=== PATIENT | male | born 2005 | race Asian ===

== ENCOUNTER 2025-05-18 07:31 | Emergency (ER) | payer OTHER ==
[~2025-05-18] VITALS: Ht 175.3 cm; Wt 80.9 kg
[2025-05-18 07:35] VITALS: TEMP 98.6
[2025-05-18] MEDS ORDERED: IBUP-1506 PO (07:50)
[2025-05-18 08:05] LABS: GLUCOMETER DEV NAME(LOC) ER.7; GLUCOSE,POINT OF CARE 369 MG/DL (70-110)
[2025-05-18 08:12] LABS: PLATELET COUNT (AUTO) 246 K/uL (150-450); RED BLOOD CELL COUNT(AUTO) 6.10 MIL/uL (4.50-5.90); RED CELL DISTRIBUTION WIDTH 13.3 % (11.5-14.5); WHITE BLOOD COUNT (AUTO) 6.6 K/uL (4.5-11.0)
[2025-05-18] MEDS: KETOROLAC TROMETHAMINE 30 MG/ML VIAL IVP ONE (08:28)
[2025-05-18] MEDS: SODIUM CHLORIDE 0.9% 1,000 ML IV ONE (08:28)
[2025-05-18] MEDS: ACETAMINOPHEN 500 MG TABLET PO ONE (08:28)
[2025-05-18] MEDS: LIDOCAINE 5% TRANSDERMAL PATCH TD ONE (08:29)
[2025-05-18 08:49] LABS: CALCIUM, TOTAL 8.7 mg/dL (8.8-10.5); CREATININE 0.91 mg/dL (0.60-1.30); GLOMERULAR FILTR. RATE CALC > 60 mL/min (>60); GLUCOSE,RANDOM 372 mg/dL (70-110); SODIUM SERUM 134 mmol/L (136-145); UREA NITROGEN, BLOOD 8 mg/dL (7-18)
[2025-05-18] MEDS: INSULIN REGULAR, HUMAN 100 UNITS/ML IVP ONE (08:57)
[2025-05-18 10:06] LABS: GLUCOMETER DEV NAME(LOC) ERT.7; GLUCOSE,POINT OF CARE 218 MG/DL (70-110)
[2025-05-18 10:24] VITALS: BP 116/69; PULSE 56; RESP 18; O2SAT 98
[2025-05-18] MEDS ORDERED: ACET-3385 PO (11:38)
[2025-05-18] MEDS ORDERED: IBUP-1492 PO (11:38)
== END 2025-05-18 11:57 | disposition home or self-care (01) ==
LOC: EMS 07:31
DX: S32.019A Unspecified fracture of first lumbar vertebra, initial encounter for closed fracture (principal); E11.65 Type 2 diabetes mellitus with hyperglycemia; F12.90 Cannabis use, unspecified, uncomplicated; Z79.899 Other long term (current) drug therapy; W19.XXXA Unspecified fall, initial encounter; Y93.44 Activity, trampolining; Y92.89 Other specified places as the place of occurrence of the external cause; Y99.8 Other external cause status
CPT/HCPCS: 99285; 72128; 96374; 96361; 96375; 80048; 82962; 85025; 36415; 72131; J1885; J1815; J7030